=== PATIENT | female | born 2000 | race Caucasian/White ===

== ENCOUNTER 2024-02-22 10:55 | Observation (INO) | payer OTHER, SELFPAY ==
[2024-02-22] VITALS (31 sets, daily range): BP systolic 119–135; BP diastolic 86–95; PULSE 63–83; RESP 16; TEMP 36.2; O2SAT 96–100; BMI 31.0
--- NOTE | 2024-02-22 11:25 | OBADM ---
This patient, Josselin Muñoz, admitted to the OB room OB Post 113 for observation. Patient/family oriented to hospital policies and general routines including ID bracelet, bed and alarms, visiting hours, pain management, procedures, bathroom and other care routines, personal items, smoking policy, room service/diet, and visiting hours. Patient/Family are encouraged to report perceived risks to care and to ask questions if they do not understand what they are told or what they should do.
[2024-02-22 11:58] LABS: Basophils Percent Auto 0.3 % (0.2-1.2); Eosinophils Percent Auto 0.3 % (0-4.4); Hematocrit 35.2 % (37.0-47.0); Hemoglobin 11.1 g/dL (12.0-15.0); Immature Granulocyte Absolute 0.09 K/mm3 (0.00-0.031); Immature Platelet Fraction Pct 10.1 % (0.9-11.2); Lymphocytes Absolute Auto 1.65 K/mm3 (0.9-3.2); Lymphocytes Percent Auto 17.6 % (18.3-44.2); Mean Corpuscular HGB Conc 31.5 g/dl (32-36); Mean Corpuscular Hemoglobin 28.9 pg (26-34); Mean Corpuscular Volume 91.7 fl (80-100); Mean Platelet Volume 11.6 fl (7.4-10.4); Monocytes Absolute Auto 0.5 K/mm3 (0.1-0.6); Monocytes Percent Auto 5.8 % (2.6-8.5); Platelet Count Result 140 k/mm3 (150-375); Red Blood Count 3.84 M/mm3 (4.2-5.4); Red Cell Distribution Width 13.5 % (11.5-14.5); White Blood Count 9.4 K/mm3 (4.5-10.0)
[2024-02-22 12:35] LABS: Alanine Aminotransferase 12 U/L (6-35); Albumin Level 3.5 g/dL (3.5-5.1); Alkaline Phosphatase 136 U/L (38-126); Anion Gap 6 mmol/L (4-12); Aspartate Amino Transferase 20 U/L (14-36); Bilirubin,Total 0.3 mg/dL (0.2-1.3); Blood Urea Nitrogen 10 mg/dL (7-17); Calcium 9.2 mg/dL (8.4-10.2); Carbon Dioxide 19 mmol/L (22-30); Chloride 110 mmol/L (98-107); Estimated CRCL calculation 86 ml/min; Estimated Glomerular Filt Rate > 60; Glucose 101 mg/dL (65-110); Sodium 135 mmol/L (137-145); Uric Acid 7.2 mg/dL (2.5-7.5)
[2024-02-22 12:51] LABS: Appearance Urine Clear (Clear); Bilirubin Urine Negative (Negative); Blood Urine Negative (Negative); Color Urine Yellow (Yellow); Glucose Urine UA Negative (Negative); Ketones Urine Negative (Negative); Leukocyte Esterase Ur Negative LEU/UL (Negative); Nitrate Urine Negative (Negative); Protein Urine Negative (Negative); Specific Grav Ur 1.005 (1.001-1.035); Urobilinogen Urine 0.2 mg/dL (<2.0); pH Urine 6.5 (5.0-9.0)
[2024-02-22 12:54] LABS: Add Urine Microscopic? NO
[2024-02-22 13:33] LABS: Creatinine Urine 35.6 mg/dL; Total Protein Urine Random 14 mg/dL; Ur Ttl Prot Creatinine Ratio 0.39 mg/mg (0-0.20)
--- NOTE | 2024-02-22 13:41 | PC.NURSE ---
Dr. Crisostomo updated with pt status. labs and VS reported. Pt complaint of right rib pain and brisk reflex reported to provider. Pt to see OB in the office tomorrow. Discharge order received.
--- NOTE | 2024-02-25 10:48 | PM.OBTRLD ---
OB - Triage/Final Diagnosis Visit Information Comments/Additional reasons for admission: I have assessed the risk for this patient, Josselin Muñoz, and determined that she would benefit from observation care. Evaluation Laboratory results: Laboratory Tests 02/22/24 02/22/24 11:50 12:43 WBC 9.4 RBC 3.84 L Hgb 11.1 L Hct 35.2 L MCV 91.7 MCH 28.9 MCHC 31.5 L RDW 13.5 Plt Count 140 L MPV 11.6 H Immature Gran % (Auto) 1.0 H Neut % (Auto) 75.0 H Lymph % (Auto) 17.6 L [place] % (Auto) 5.8 Eos % (Auto) 0.3 Baso % (Auto) 0.3 Lymph # (Auto) 1.65 [place] # (Auto) 0.5 Eos # (Auto) 0.0 Baso # (Auto) 0.0 Abs Immat Gran (auto) 0.09 H Absolute Neuts (auto) 7.0 H Absolute Nucleated RBC 0.000 Nucleated RBC % 0.0 % Immature Plt Fraction 10.1 Sodium 135 L Potassium 4.0 Chloride 110 H Carbon Dioxide 19 L Anion Gap 6 BUN 10 Creatinine 0.80 Estim Creat Clear Calc 86 Estimated GFR > 60 Glucose 101 Uric Acid 7.2 Calcium 9.2 Total Bilirubin 0.3 AST 20 ALT 12 Alkaline Phosphatase 136 H Total Protein 6.0 L Albumin 3.5 Urine Color Yellow Urine Appearance Clear Urine pH 6.5 Ur Specific [place] 1.005 Urine Protein Negative Urine Glucose (UA) Negative Urine Ketones Negative Ur Blood (Man) Negative Urine Nitrate Negative Urine Bilirubin Negative Urine Urobilinogen 0.2 Leukocyte Esterase Rfl Negative U Random Total Protein 14 Urine Creatinine 35.6 Protein/Creat Ratio 2 0.39 H Final Diagnosis (1) Shortness of breath: Code(s): R06.02 - Shortness of breath Status: Acute
== END 2024-02-22 13:53 | disposition home or self-care (01) ==
PROVIDERS: Admitting Provider Obstetrics & Gynecology; PCP Family Medicine; Visit Provider Obstetrics & Gynecology
DX: O26.893 Other specified pregnancy related conditions, third trimester (principal); R06.02 Shortness of breath; Z3A.39 39 weeks gestation of pregnancy
CPT/HCPCS: 36415; 80053; 81003; 82570; 84156; 84550; 85025; 85055; G0378; G0379

== ENCOUNTER 2024-02-23 09:48 | Inpatient (IN) | payer OTHER, SELFPAY ==
[2024-02-23] VITALS (135 sets, daily range): BP systolic 90–134; BP diastolic 46–96; PULSE 56–123; RESP 16–18; TEMP 36.2–37.6; O2SAT 75–100; BMI 28.3
--- NOTE | 2024-02-23 10:49 | LDADM ---
This patient, Josselin Muñoz, was admitted to Labor/Delivery/Recovery 106 on 02/23/24 at 09:48. Plans for labor, pain management and were discussed with patient. Patient/family oriented to hospital policies and general routines including ID bracelet, bed and alarms, visiting hours, pain management, procedures, bathroom and other care routines, personal items, smoking policy, room service/diet and guest tray routines, security routines, and visiting hours. Patient/Family are encouraged to report perceived risks to care and to ask questions if they do not understand what they are told or what they should do. See OBIX for further documentation.
[2024-02-23 11:45] LABS: Basophils Absolute Auto 0.1 K/mm3 (0.0-0.1); Basophils Percent Auto 0.4 % (0.2-1.2); Eosinophils Percent Auto 0.2 % (0-4.4); Hematocrit 34.4 % (37.0-47.0); Hemoglobin 11.3 g/dL (12.0-15.0); Immature Granulocyte Percent A 0.7 % (0-0.5); Lymphocytes Percent Auto 15.6 % (18.3-44.2); Mean Corpuscular HGB Conc 32.8 g/dl (32-36); Mean Corpuscular Hemoglobin 29.6 pg (26-34); Mean Corpuscular Volume 90.1 fl (80-100); Mean Platelet Volume 11.8 fl (7.4-10.4); Monocytes Absolute Auto 0.6 K/mm3 (0.1-0.6); Monocytes Percent Auto 4.3 % (2.6-8.5); Neutrophils Absolute Auto 11.1 K/mm3 (1.3-6.7); Neutrophils Percent Auto 78.8 % (45.5-73.1); Platelet Count Result 141 k/mm3 (150-375); Red Blood Count 3.82 M/mm3 (4.2-5.4); Red Cell Distribution Width 13.6 % (11.5-14.5); White Blood Count 14.1 K/mm3 (4.5-10.0)
[2024-02-23] MEDS: OXYTOCIN 30 UNITS/NS 500 ML 30 UNITS/500 ML BAG IV CONT (11:57)
[2024-02-23] MEDS: LACTATED RINGERS 1,000 ML 125 ML IV CONT (11:57)
[2024-02-23] MEDS: fentaNYL CITRATE INJ (*CRX) 100 MCG/2 ML VIAL 50 MCG IV PUSH (11:58)
[2024-02-23 12:44] LABS: HIV 1/2 Ab P24 Ag Result Negative (Negative)
[2024-02-23] MEDS: ONDANSETRON INJ 4 MG/2 ML VIAL IV PUSH (12:59)
--- NOTE | 2024-02-23 13:35 | WPDANESEPP ---
Anes - Eval Pre Procedure Procedure: labor pain management Date/Time: 02/23/24 13:35 Surgeon: Kranthi Preop Diagnosis: pain during labor Pre Op Diagnosis: leaking and contractions Patient Data Age: 23 Gender: F Height: 1.63 m Weight: 75 kg Last Vital Signs Temp 97.7 F 02/23/24 10:33 Pulse 77 02/23/24 13:31 Resp 16 02/23/24 10:33 BP 118/81 02/23/24 13:31 Pulse Ox 99 02/23/24 13:30 O2 Del Method Room Air 02/23/24 10:49 Allergies Allergy/AdvReac Type Severity Reaction Status Date / Time No Known Allergies Allergy Verified 01/26/24 15:30 Home Medications Medication Instructions Recorded Confirmed Type Prozac 60 mg PO DAILY 01/26/24 02/23/24 History vits no.126-ferrous fum 1 tablet PO DAILY 01/26/24 01/26/24 History 28 mg iron-folic acid 800 mcg tablet (Classic ) Laboratory Tests 02/23/24 10:31 WBC 14.1 H K/mm3 (4.5-10.0) RBC 3.82 L M/mm3 (4.2-5.4) Hgb 11.3 L g/dL (12.0-15.0) Hct 34.4 L % (37.0-47.0) MCV 90.1 fl (80-100) MCH 29.6 pg (26-34) MCHC 32.8 g/dl (32-36) RDW 13.6 % (11.5-14.5) Plt Count 141 L k/mm3 (150-375) MPV 11.8 H fl (7.4-10.4) Immature Gran % (Auto) 0.7 H % (0-0.5) Neut % (Auto) 78.8 H % (45.5-73.1) Lymph % (Auto) 15.6 L % (18.3-44.2) [place] % (Auto) 4.3 % (2.6-8.5) Eos % (Auto) 0.2 % (0-4.4) Baso % (Auto) 0.4 % (0.2-1.2) Lymph # (Auto) 2.20 K/mm3 (0.9-3.2) [place] # (Auto) 0.6 K/mm3 (0.1-0.6) Eos # (Auto) 0.0 K/mm3 (0-0.3) Baso # (Auto) 0.1 K/mm3 (0.0-0.1) Abs Immat Gran (auto) 0.10 H K/mm3 (0.00-0.031) Absolute Neuts (auto) 11.1 H K/mm3 (1.3-6.7) Absolute Nucleated RBC 0.000 K/mm3 (0.0-0.012) Nucleated RBC % 0.0 % (0.0-0.2) RPR Pending HIV 1&2 Ab/P24 Ag 4thGn Negative (Negative) Blood Type A Positive Antibody Screen Negative Patient hx anesthesia problems: none Family hx anesthesia problems: none Results Review: All pre-operative results and documents have been reviewed as part of the pre-operative evaluation. [facility] Family History Family History Father Congestive heart failure Mother Skin cancer Sibling Arthritis Social History Social History Smoking status: Never smoker Substance use: never Do You Feel Safe in your Home?: Yes Lack of Transportation: No Lack of Food: Never True Current Housing: I Have Housing Concerned About Future Housing: No Difficulty Paying Gas/Electric Bills: No Difficulty Paying for Meds: No Currently Unemployed: No Education: Bachelor's Degree Difficulty w/ Childcare or Family Care: No Spiritual care concerns: No Exam Day of Procedure 02/23/24 13:35
--- NOTE | 2024-02-23 14:09 | WPDANESEPPF ---
Anes - Initial Pre Proc Eval Date/Time: 02/23/24 14:09 Surgeon: Shen Crisostomo MD Pre Op Diagnosis: leaking and contractions Patient Data Age: 23 Gender: F Height: 1.63 m Weight: 75 kg Last Vital Signs Temp 36.2 C L 02/23/24 14:04 Pulse 76 02/23/24 14:06 Resp 16 02/23/24 10:33 BP 119/70 02/23/24 14:06 Pulse Ox 100 02/23/24 14:06 O2 Del Method Room Air 02/23/24 10:49 Allergies Allergy/AdvReac Type Severity Reaction Status Date / Time No Known Allergies Allergy Verified 01/26/24 15:30 Home Medications Medication Instructions Recorded Confirmed Type Prozac 60 mg PO DAILY 01/26/24 02/23/24 History vits no.126-ferrous fum 1 tablet PO DAILY 01/26/24 01/26/24 History 28 mg iron-folic acid 800 mcg tablet (Classic ) Laboratory Tests 02/23/24 10:31 WBC 14.1 H K/mm3 (4.5-10.0) RBC 3.82 L M/mm3 (4.2-5.4) Hgb 11.3 L g/dL (12.0-15.0) Hct 34.4 L % (37.0-47.0) MCV 90.1 fl (80-100) MCH 29.6 pg (26-34) MCHC 32.8 g/dl (32-36) RDW 13.6 % (11.5-14.5) Plt Count 141 L k/mm3 (150-375) MPV 11.8 H fl (7.4-10.4) Immature Gran % (Auto) 0.7 H % (0-0.5) Neut % (Auto) 78.8 H % (45.5-73.1) Lymph % (Auto) 15.6 L % (18.3-44.2) [place] % (Auto) 4.3 % (2.6-8.5) Eos % (Auto) 0.2 % (0-4.4) Baso % (Auto) 0.4 % (0.2-1.2) Lymph # (Auto) 2.20 K/mm3 (0.9-3.2) [place] # (Auto) 0.6 K/mm3 (0.1-0.6) Eos # (Auto) 0.0 K/mm3 (0-0.3) Baso # (Auto) 0.1 K/mm3 (0.0-0.1) Abs Immat Gran (auto) 0.10 H K/mm3 (0.00-0.031) Absolute Neuts (auto) 11.1 H K/mm3 (1.3-6.7) Absolute Nucleated RBC 0.000 K/mm3 (0.0-0.012) Nucleated RBC % 0.0 % (0.0-0.2) RPR Pending HIV 1&2 Ab/P24 Ag 4thGn Negative (Negative) Blood Type A Positive Antibody Screen Negative Patient hx anesthesia problems: none Family hx anesthesia problems: none Results Review: All pre-operative results and documents have been reviewed as part of the pre-operative evaluation. [facility] Family History Family History Father Congestive heart failure Mother Skin cancer Sibling Arthritis Social History Social History Smoking status: Never smoker Substance use: never Do You Feel Safe in your Home?: Yes Lack of Transportation: No Lack of Food: Never True Current Housing: I Have Housing Concerned About Future Housing: No Difficulty Paying Gas/Electric Bills: No Difficulty Paying for Meds: No Currently Unemployed: No Education: Bachelor's Degree Difficulty w/ Childcare or Family Care: No Spiritual care concerns: No Anes - Eval Final PreProcedure Day of Procedure 02/23/24 14:09 Patient weight: overweight Heart: regular rate and rhythm Lungs: clear to auscultation Airway: Mallampati scale class II Neurological: alert and oriented ASA classification: II Emergent: no Anesthetic plan: proceed Anesthesia type and monitoring: regional epidural and standard monitoring Results Review: All pre-operative results and documents have been reviewed as part of the pre-operative evaluation. Informed Consent: The patient's anesthetic plan and its attendant risks and benefits were discussed with the patient/family/POA. Questions were solicited and answers provided to the satisfaction of the patient/family/POA.
--- NOTE | 2024-02-23 15:36 | WPDOBADMIT ---
Obstetrics - Admit Note Admission Note: record reviewed. No pertinent additions to the history and/or any subsequent changes in the physical findings that are not consistent with the expected course of the were found. Patient presents for rupture of membranes at home at 0820. Reports contractions started around 0500. No bleeding, good movement. Augmentation with pitocin per protocol. FHR category I Additions to the history and/or subsequent changes in the physical findings follow. None.
--- NOTE | 2024-02-23 20:33 | PM.OBPRVD ---
OB - Vaginal Delivery Note Procedure Delivery date: 02/23/24 Intrapartal Events: Other (meconium) Delivery augmentation: Pitocin Delivery monitor: External FHT and Internal Uterine Route of delivery: Episiotomy description: None Laceration Description: Perineal - 2nd Degree Delivery repair: vicryl Specimen: No Quantitative Blood Loss (ml): 200 Anesthesia type: Epidural Disposition: Floor Complications: No immediate complications Baby Date of : 02/23/24 Time of : 20:20 Weeks of gestation at delivery: 39 Infant gender: Male Weight (pounds): 7 Weight (ounces): 10 presentation: vertex position: Left Occiput Anterior Placenta delivery description: Spontaneous Cord Vessel Description: 3 Vessels and Clamped/Cut Narrative: to warmer for evaluation, mother and baby in stable condition
[2024-02-23] MEDS: OXYTOCIN 30 UNITS/NS 500 ML 30 UNITS/500 ML BAG 125 UNITS IV CONT (20:53)
[2024-02-23] MEDS: ACETAMINOPHEN 325 MG TABLET 650 MG PO (22:10)
[2024-02-23] MEDS: WITCH HAZEL 40 PADS 1 PAD TOPICAL (23:02)
[2024-02-23] MEDS: BENZOCAINE 20% AER SPR (*SP) 56 GM CAN 1 SPRAY TOPICAL (23:02)
--- NOTE | 2024-02-23 23:20 | OBPPTRN ---
Patient transferred to post room #288 via wheelchair. Support person present. Oriented to unit, room, information board, rooming in, admission packet and security measures. Patient verbalizes understanding.
[2024-02-24] MEDS: IBUPROFEN 600 MG TABLET PO ×3 (02:21→16:30)
[2024-02-24 04:30] VITALS: BP 114/74; PULSE 71; RESP 16; TEMP 36.4; O2SAT 98
--- NOTE | 2024-02-24 07:53 | PM.OBPNVD ---
OB - PN: Subj Subjective Date/time seen: 02/24/24 07:53 Interval history: pp day 1 doing well breast feeding OB - PN: Obj Data Labs 02/24/24 04:31 Labs: Laboratory Results - last 24 hr 02/23/24 02/24/24 10:31 04:31 WBC 14.1 H RBC 3.82 L Hgb 11.3 L 9.0 L Hct 34.4 L 27.0 L MCV 90.1 MCH 29.6 MCHC 32.8 RDW 13.6 Plt Count 141 L MPV 11.8 H Immature Gran % (Auto) 0.7 H Neut % (Auto) 78.8 H Lymph % (Auto) 15.6 L [place] % (Auto) 4.3 Eos % (Auto) 0.2 Baso % (Auto) 0.4 Lymph # (Auto) 2.20 [place] # (Auto) 0.6 Eos # (Auto) 0.0 Baso # (Auto) 0.1 Abs Immat Gran (auto) 0.10 H Absolute Neuts (auto) 11.1 H Absolute Nucleated RBC 0.000 Nucleated RBC % 0.0 HIV 1&2 Ab/P24 Ag 4thGn Negative Blood Type A Positive Antibody Screen Negative OB - PN A/P Plan day: 1 Plan: routine care Time Spent With Patient Time: Total time spent is greater than 50% in coordination of care (as documented) at patient's floor/unit and/or counseling patient: Review of Systems Review of Systems: All systems reviewed & are unremarkable except as noted in HPI and below Exam Const: General: cooperative and healthy appearing Resp: Effort & Inspection: normal respiratory effort Cardio: Rate: regular rate Rhythm: regular rhythm Back/Spine/Pelvis: Back: no CVA tenderness Skin: General skin exam: normal color Neuro: General: patient oriented x3 Extrem: Right lower extremity: normal to inspection Left lower extremity: normal to inspection
[2024-02-24] MEDS: POLYSACCHARIDE IRON COMPLEX 150 MG CAPSULE PO ×2 (08:03→16:30)
[2024-02-24] MEDS: DOCUSATE SODIUM 100 MG CAPSULE PO ×2 (08:03→16:30)
[2024-02-24] MEDS: MULTIVIT/MIN/PREN/FOL AC/IRON TABLET 1 TAB PO (08:03)
[2024-02-24] MEDS: FLUoxetine HCL 20 MG CAPSULE 60 MG PO (08:04)
[2024-02-24 08:20] VITALS: BP 130/67; PULSE 69; RESP 16; TEMP 36.9; O2SAT 99
[2024-02-24 12:26] VITALS: BP 125/74; PULSE 77; RESP 16; TEMP 36.8; O2SAT 99
[2024-02-24] MEDS: ACETAMINOPHEN 325 MG TABLET 650 MG PO ×2 (12:46→19:39)
--- NOTE | 2024-02-24 13:17 | PC.NURSE ---
0730. Consulted with patient to assess needs related to . Discussed with mother her successes, concerns and any questions she has. Mother reported she has had multiple attempts to breastfeed baby this morning at 0600 and again at 0700; infant sleepy/reluctant; nipple shield offered to help get baby to latch. Mother accepted offer to use the nipple shield and baby latched optimally with the shield to the L breast in football hold. Reviewed good handwashing, cleaning the nipple shield and the appropriate way to apply and use as a tool. Discussed with mom the nipple shield precautions, possible complications associated with the risks and benefits. Reviewed practicing with a nipple shield, then without and how to protect the milk supply and production. Mom and baby guide referred to as a resource for outpatient services, community resources and when to call a provider. Mom voiced understanding of the importance of hand expression, nipple stimulation and initiating a pumping schedule if continues to nurse with the shield. Encouraged understanding the benefits of skin to skin, responding to feeding cues, frequencies of feeding 8-12 times in 24 hours (approximately 2-3 hours), duration of feedings, milk production, intake/output feeding sheet and signs of adequate intake encouraging swallowing at the breast. Reviewed positioning and alignment, supporting breast, off-centered (asymmetrical latch) and leading with the chin with big, open, wide gape. Education given to the mother of how to visualize the suckling (with good rocking jaw motion) swallows (dropping of the lower jaw) and how to listen for drinking at the breast (the ka sound). The infant was able to maintain latch without discomfort to mother. Nipple care reviewed with optimal latch, good positioning and using clean hands when touching her breast. Resources used to facilitate learning were used from the visual handouts. Mother voiced understanding of the education shared, to call for assistance if the infant does not latch or if there is discomfort with . Reported to the Primary RN. 1100. Mother called out for assistance to get baby to latch. Baby sleepy/reluctant after multiple attempts at the breast with no nipple shield. Attempted to relatch with the nipple shield, latched optimally to the L breast in cross cradle hold. Mother states she has no pain with the latch and will continue to time infant at the breast and allow him to nurse until he seems satisfied. Mother verbalized she will call with need for further assistance or help to relatch .
[2024-02-24 13:43] LABS: Rapid Plasma Reagin Non-Reactive (NonReactive)
--- NOTE | 2024-02-24 15:41 | WPDANLDPN2 ---
Anes-Prog Note L&D Date/Time: 02/24/24 15:41 Comfortable throughout: labor and delivery Neuraxial method: epidural Epidural/Spinal procedure site: tender Neuro status: Neuro function grossly intact. Cardiovascular status: normal Respiratory status: normal Airway patency: baseline Mental status: baseline Post-Op hydration status: normal Vital Signs: Last Vital Signs Temp 36.8 C 02/24/24 12:26 Pulse 77 02/24/24 12:26 Resp 16 02/24/24 12:26 BP 125/74 02/24/24 12:26 Pulse Ox 99 02/24/24 12:26 O2 Del Method Room Air 02/24/24 07:00 Pain score (VAS): 3/10 I/O: Intake & Output 02/23/24 02/24/24 02/24/24 23:59 07:59 15:59 Intake Total 500 Output Total 360 Balance -360 500 Post-procedural complaints: none Patient feedback: Patient satisfied with anesthetic care.
[2024-02-24 16:15] VITALS: BP 127/77; PULSE 71; RESP 16; TEMP 36.4; O2SAT 98
[2024-02-24 21:35] VITALS: BP 106/72; PULSE 86; RESP 16; TEMP 37.1; O2SAT 99
[2024-02-25] MEDS: ACETAMINOPHEN 325 MG TABLET 650 MG PO ×2 (01:40→13:16)
[2024-02-25] MEDS: IBUPROFEN 600 MG TABLET PO ×2 (01:41→08:36)
[2024-02-25 08:05] VITALS: BP 126/77; PULSE 82; RESP 16; TEMP 36.5; O2SAT 100
[2024-02-25] MEDS: POLYSACCHARIDE IRON COMPLEX 150 MG CAPSULE PO (08:35)
[2024-02-25] MEDS: FLUoxetine HCL 20 MG CAPSULE 60 MG PO (08:36)
[2024-02-25] MEDS: DOCUSATE SODIUM 100 MG CAPSULE PO (08:36)
[2024-02-25] MEDS: MULTIVIT/MIN/PREN/FOL AC/IRON TABLET 1 TAB PO (08:36)
--- NOTE | 2024-02-25 10:44 | PM.OBPNVD ---
OB - PN: Subj Subjective Date/time seen: 02/25/24 10:44 Interval history: pp day 2 doing well breast feeding, using nipple shield emptying bladder without issue ready for discharge home OB - PN: Obj Data Labs 02/24/24 04:31 Labs: Laboratory Results - last 24 hr 02/23/24 10:31 RPR Non-reactive OB - PN A/P Plan day: 2 Plan: routine care and discharge home Time Spent With Patient Time: Total time spent is greater than 50% in coordination of care (as documented) at patient's floor/unit and/or counseling patient: Review of Systems Review of Systems: All systems reviewed & are unremarkable except as noted in HPI and below Exam Const: General: cooperative and healthy appearing Resp: Effort & Inspection: normal respiratory effort Cardio: Rate: regular rate Rhythm: regular rhythm Skin: General skin exam: normal color Neuro: General: patient oriented x3 Extrem: Right lower extremity: normal to inspection Left lower extremity: normal to inspection
--- NOTE | 2024-02-25 10:46 | PM.OBDSVD ---
DS: Admitting Diagnosis Discharge Date 02/25/24 Admitting Diagnosis rupture of membranes DS: Discharge Diagnosis Discharge Diagnosis (1) (spontaneous vaginal delivery): Code(s): O80 - Encounter for full-term uncomplicated delivery Status: Acute OB - DS: Summary OB Procedures : None OB Procedures Intrapartum: Spontaneous Vag Delivery OB Procedures: : None Peripartum Data Laceration Description: Perineal - 2nd Degree Episiotomy description: None Time Spent with Patient Time attestation: Total time spent providing and/or coordinating discharge services: DS: Data Data Completed and Pending Labs on day of discharge: Labs from last 24 hours 02/23/24 10:31 RPR Non-reactive Discharge Plan Discharge Attending physician on discharge: Shen Crisostomo Discharging Clinician: Shen Crisostomo Patient Disposition: Home, Self-Care Activity: may shower and as tolerated Diet: as tolerated Patient Instructions: Antibiotic Form Stand Alone Forms: General Discharge Information Follow-up/Referrals: Shen Crisostomo MD [Physician] - 4 Weeks Discharge Medications: New docusate sodium 100 mg Capsule 100 mg PO BID PRN (Reason: Constipation) Qty: 60 0RF ibuprofen 600 mg Tablet 600 mg PO Q6H PRN (Reason: Cramping) Qty: 30 0RF Continued Classic 28 mg iron- 800 mcg Tablet 1 tablet PO DAILY Prozac 60 mg PO DAILY Date of admission: 02/23/24 09:48 Primary Care Provider: Minnie*Lisa Admitting Provider: Shen Crisostomo Attending physician on admission: Shen Crisostomo Condition: Stable
[2024-02-26 10:41] VITALS: BP 129/80; PULSE 95; RESP 18; TEMP 36.9; O2SAT 98
== END 2024-02-25 13:27 | disposition home or self-care (01) | DRG 807 ==
LOC: ANHLDR 10:27 → ANHOB2 23:25
PROVIDERS: Advanced Practice Midwife; Admitting Provider Obstetrics & Gynecology; PCP Family Medicine; Visit Provider Obstetrics & Gynecology
DX: O77.0 Labor and delivery complicated by meconium in amniotic fluid (principal); Z37.0 Single live birth; Z3A.39 39 weeks gestation of pregnancy; O70.1 Second degree perineal laceration during delivery
CPT/HCPCS: 36415; 80053; 81003; 82570; 84156; 84550; 85014; 85018; 85025; 85055; 86592; 86703; 86850; 86900; 86901; A9270; G0378; G0379; G0432; J2405; J2590; J2795; J3010; J7120